=== PATIENT | male | born 1970 | race Caucasian/White ===

== ENCOUNTER 2019-03-29 11:49 | Inpatient (IN) | payer MEDICAID ==
[~2019-03-29] VITALS: Ht 182.9 cm; Wt 88.3 kg
[2019-03-29 12:56] LABS: BASOPHILS % (AUTO) 0.3 % (0-1); EOSINOPHILS # (AUTO) 0.1 X10'3 (0-0.9); EOSINOPHILS % (AUTO) 1.4 % (0-6); HEMATOCRIT 50.1 % (42.0-52.0); HEMOGLOBIN 17.6 g/dl (14.0-17.9); LYMPHOCYTES # (AUTO) 2.1 X10'3 (1.1-4.8); MEAN CORPUSCULAR HEMOGLOBIN 30.8 PG (27.0-31.0); MEAN CORPUSCULAR HGB CONC 35.1 g/dL (33.0-36.5); MEAN CORPUSCULAR VOLUME 87.7 FL (78-98); MEAN PLATELET VOLUME 7.1 FL (7.4-10.4); MONOCYTES # (AUTO) 0.7 X10'3 (0-0.9); MONOCYTES % (AUTO) 6.5 % (2-12); NEUTROPHILS # (AUTO) 7.4 X10'3 (1.8-7.7); NEUTROPHILS % (AUTO) 71.8 % (42-75); PLATELET COUNT 279 X10'3 (140-440); RED BLOOD COUNT 5.71 X10'6 (4.70-6.10); RED CELL DISTRIBUTION WIDTH 13.3 % (11.5-14.5); WHITE BLOOD COUNT 10.3 X10'3 (4.5-11.0)
[2019-03-29 13:09] LABS: PARTIAL THROMBOPLASTIN TIME 30 SECONDS (22-32)
[2019-03-29 13:20] LABS: ALANINE AMINOTRANSFERASE 41 U/L (12-78); ALBUMIN 4.3 G/DL (3.4-5.0); ALBUMIN/GLOBULIN RATIO 1.3 (1.1-1.5); ALKALINE PHOSPHATASE 60 IU/L (46-116); ANION GAP 7 (8-16); ASPARTATE AMINO TRANSFERASE 18 U/L (10-37); BILIRUBIN,TOTAL 0.8 MG/DL (0.1-1.0); BLOOD UREA NITROGEN 13 MG/DL (7-18); CALCIUM 9.6 MG/DL (8.5-10.1); CHLORIDE 107 MMOL/L (99-107); CREATININE 0.93 MG/DL (0.60-1.10); GLUCOSE 101 MG/DL (70-104); POTASSIUM 4.4 MMOL/L (3.5-5.1); SODIUM 142 MMOL/L (135-145); TOTAL CARBON DIOXIDE 27.8 MMOL/L (24-32); TOTAL PROTEIN 7.6 G/DL (6.4-8.2); eGFR 87 ML/MIN
[2019-03-29] MEDS ORDERED: iohexol 300mg/ml 100ml inj. ONE (13:37)
[2019-03-29] MEDS ORDERED: acetaminophen 325mg tablet PO ONE (14:00)
[2019-03-29] MEDS ORDERED: piperacillin/tazo 4.5gm/100ml 100 ML IV STA (14:44)
[2019-03-29] MEDS ORDERED: NO HOME MEDS (14:59)
[2019-03-29] MEDS ORDERED: potassium Cl 20 mEq SR tablet PO PRN ×2 (15:15)
[2019-03-29] MEDS ORDERED: diphenhydrAMINE 25mg capsule PO PRN (15:15)
[2019-03-29] MEDS ORDERED: magnesium Cl slow-release 64mg tablet PO PRN (15:15)
[2019-03-29] MEDS ORDERED: magnesium hydroxide 30ml (MOM) UD suspension PO PRN (15:15)
[2019-03-29] MEDS ORDERED: magnesium 4gm in 100ml NS 100 ML IV PRN (15:15)
[2019-03-29] MEDS ORDERED: acetaminophen 650mg rectal suppository RC PRN (15:15)
[2019-03-29] MEDS ORDERED: metoclopramide 5 mg/ml inj IV PRN (15:15)
[2019-03-29] MEDS ORDERED: diphenhydrAMINE 50 mg/ml inj IV PRN (15:15)
[2019-03-29] MEDS ORDERED: HYDROcodone/acetaminophen 10/325mg tab PO PRN (15:15)
[2019-03-29] MEDS ORDERED: bisacodyl 10mg suppository rectal RC PRN (15:15)
[2019-03-29] MEDS ORDERED: magnesium 2GM in 50ml NS 50 ML IV PRN (15:15)
[2019-03-29] MEDS ORDERED: ondansetron/PF 4mg/2ml inj IV PRN (15:15)
[2019-03-29] MEDS ORDERED: acetaminophen 325mg tablet PO PRN (15:15)
[2019-03-29] MEDS ORDERED: potassium CL 10mEq/100ml bag 100 ML IV PRN ×2 (15:15)
[2019-03-29] MEDS ORDERED: HYDROcodone/acetaminophen 5mg/325mg tablet PO PRN (15:15)
[2019-03-29] MEDS: normal saline 1000ml 1,000 ML IV SCH (15:34)
--- NOTE | 2019-03-29 16:10 | NUR ---
Report received from ED RN, Mindi.
[2019-03-29 16:30] VITALS: BP 129/91
[2019-03-29 16:42] LABS: H PYLORI ANTIBODY NEGATIVE (Neg)
[2019-03-29 16:56] LABS: HEMOGLOBIN A1C 5.4 % (4.5-6.2)
[2019-03-29] MEDS: pantoprazole 40mg Tablet.DR PO SCH (17:07)
[2019-03-29] MEDS: acetaminophen 325mg tablet PO PRN (17:22)
--- NOTE | 2019-03-29 18:05 | NUR ---
Problems reprioritized. Patient report given, questions answered & plan of care reviewed with WILMER Samano & WILMER Obregon.
--- NOTE | 2019-03-29 18:30 | NUR ---
Patient in room [facility]. I have received report from BLADIMIR and had the opportunity to ask questions and assume patient care. ASSUMED CARE OF PT WITH WILMER Almazan
--- NOTE | 2019-03-29 18:50 | NUR ---
Patient in room [facility]. I have received report from Kelly GUILLEN and had the opportunity to ask questions and assume patient care.
[2019-03-29 20:00] VITALS: BP 116/78
[2019-03-29] MEDS: K and/or MAG REPLACEMENT MC SCH (20:00)
[2019-03-29] MEDS: docusate sod 100mg capsule PO SCH (20:35)
[2019-03-29] MEDS ORDERED: temazepam 15mg capsule PO PRN (21:00)
[2019-03-29] MEDS: piperacillin/tazo 3.375gm/50ml 50 ML IV SCH (23:59)
[2019-03-30] VITALS: BP 113/78
[2019-03-30] MEDS: normal saline 1000ml 1,000 ML IV SCH ×3 (00:04→20:10)
[2019-03-30 05:09] LABS: BASOPHILS % (AUTO) 0.5 % (0-1); EOSINOPHILS # (AUTO) 0.3 X10'3 (0-0.9); EOSINOPHILS % (AUTO) 3.8 % (0-6); HEMATOCRIT 43.9 % (42.0-52.0); HEMOGLOBIN 15.4 g/dl (14.0-17.9); LYMPHOCYTES # (AUTO) 2.1 X10'3 (1.1-4.8); LYMPHOCYTES % (AUTO) 27.2 % (21-51); MEAN CORPUSCULAR HEMOGLOBIN 31.2 PG (27.0-31.0); MEAN PLATELET VOLUME 7.1 FL (7.4-10.4); MONOCYTES # (AUTO) 0.7 X10'3 (0-0.9); NEUTROPHILS # (AUTO) 4.6 X10'3 (1.8-7.7); NEUTROPHILS % (AUTO) 59.5 % (42-75); PLATELET COUNT 235 X10'3 (140-440); RED BLOOD COUNT 4.93 X10'6 (4.70-6.10); RED CELL DISTRIBUTION WIDTH 13.4 % (11.5-14.5); WHITE BLOOD COUNT 7.7 X10'3 (4.5-11.0)
[2019-03-30 05:14] LABS: ALANINE AMINOTRANSFERASE 34 U/L (12-78); ALBUMIN 3.4 G/DL (3.4-5.0); ALBUMIN/GLOBULIN RATIO 1.2 (1.1-1.5); ALKALINE PHOSPHATASE 50 IU/L (46-116); ANION GAP 7 (8-16); ASPARTATE AMINO TRANSFERASE 18 U/L (10-37); BLOOD UREA NITROGEN 12 MG/DL (7-18); BUN/CREATININE RATIO 12.8 (5.4-32.0); CALCIUM 8.7 MG/DL (8.5-10.1); CHLORIDE 110 MMOL/L (99-107); CREATININE 0.94 MG/DL (0.60-1.10); GLUCOSE 98 MG/DL (70-104); MAGNESIUM 2.1 MG/DL (1.5-2.4); POTASSIUM 3.9 MMOL/L (3.5-5.1); SODIUM 143 MMOL/L (135-145); TOTAL CARBON DIOXIDE 26.2 MMOL/L (24-32); TOTAL PROTEIN 6.3 G/DL (6.4-8.2); eGFR 86 ML/MIN
--- NOTE | 2019-03-30 06:20 | NUR ---
Problems reprioritized. Patient report given, questions answered & plan of care reviewed with Chel GUILLEN.
--- NOTE | 2019-03-30 06:23 | NUR ---
Patient in room [facility]. I have received report from Jazmyne/Mindi GUILLEN and had the opportunity to ask questions and assume patient care.
[2019-03-30] MEDS: pantoprazole 40mg Tablet.DR PO SCH (07:07)
[2019-03-30] MEDS: piperacillin/tazo 3.375gm/50ml 50 ML IV SCH ×2 (07:07→16:33)
[2019-03-30] MEDS: docusate sod 100mg capsule PO SCH ×2 (07:07→20:10)
[2019-03-30 07:15] VITALS: BP 114/78
[2019-03-30] MEDS: K and/or MAG REPLACEMENT MC SCH ×2 (08:00→20:00)
[2019-03-30] MEDS: acetaminophen 325mg tablet PO PRN ×3 (08:04→16:36)
[2019-03-30 11:00] VITALS: BP 132/87
--- NOTE | 2019-03-30 15:43 | NUR ---
Nutrition consult re: "diverticulitis, GERD, post-prandial hypoglycemia". Per H&P pt had a colonoscopy 4 days prior that showed diverticulosis, admitted with diverticulitis. Pt and SO seen at bedside provided with written and verbal GERD, low fiber, and high fiber educations as well as a list of fiber content in food. Pt reports hypoglycemia following PO intake stating that he gets so tired after meals that he is unable to work and needs to rest. Pt reports that because of this, he usually does not eat meals throughout the day and only eats dinner. Pt reports he has never checked his blood sugars before and is just assuming he is having hypoglycemia given extreme fatigue following meals. RD paged MD regarding recommendation of taking accuchecks after meals to observe post-prandial blood sugars. Current A1c is WNL at 5.4. No hx DM. Per H&P pt has problems with his bowel emptying and takes MiraLax at home. Appetite and weight have been good per H&P. H.pylori test negative. Pt provided with RD contact information. Will continue to follow closely. Recommendations: 1) Advance to low fiber diet as medically indicated 2) Monitor post-prandial BG levels to monitor for hypoglycemia 3) Routine bowel care 4) Wt per rx Addendum: 03/30/19 at [address] Amended: Links added.
--- NOTE | 2019-03-30 18:46 | NUR ---
Problems reprioritized. Patient report given, questions answered & plan of care reviewed with Nayla GUILLEN.
--- NOTE | 2019-03-30 19:35 | NUR ---
Patient in room [facility]. I have received report from WILMER Milligan and had the opportunity to ask questions and assume patient care. Addendum: 03/30/19 at 1936 by Nayla Johnson RN Amended: Links added.
[2019-03-30 20:00] VITALS: BP 120/72
[2019-03-30] MEDS: Melatonin 3mg tablet PO SCH (20:09)
[2019-03-30] MEDS: lactobacillus rhamnosus 10,000 MMU CELLS/CAPSULE PO SCH (20:09)
[2019-03-30] MEDS: mag hydrox/Alum hydrox/simeth 30ml oral suspension PO PRN (21:38)
--- NOTE | 2019-03-30 22:57 | NUR ---
Patient in room [facility]. I have received report from WILMER Milligan and had the opportunity to ask questions and assume patient care. Addendum: 03/30/19 at 2258 by Nayla Johnson RN Amended: Links added.
[2019-03-31] MEDS: piperacillin/tazo 3.375gm/50ml 50 ML IV SCH ×3 (00:02→16:46)
[2019-03-31 00:43] VITALS: BP 108/74
[2019-03-31] MEDS: normal saline 1000ml 1,000 ML IV SCH (04:26)
[2019-03-31] MEDS: acetaminophen 325mg tablet PO PRN ×3 (04:29→21:59)
[2019-03-31 04:56] LABS: BASOPHILS # (AUTO) 0.1 X10'3 (0-0.2); BASOPHILS % (AUTO) 0.9 % (0-1); EOSINOPHILS # (AUTO) 0.3 X10'3 (0-0.9); EOSINOPHILS % (AUTO) 4.4 % (0-6); HEMATOCRIT 41.2 % (42.0-52.0); HEMOGLOBIN 14.6 g/dl (14.0-17.9); LYMPHOCYTES # (AUTO) 2.3 X10'3 (1.1-4.8); LYMPHOCYTES % (AUTO) 36.4 % (21-51); MEAN CORPUSCULAR HEMOGLOBIN 31.2 PG (27.0-31.0); MEAN CORPUSCULAR HGB CONC 35.3 g/dL (33.0-36.5); MEAN CORPUSCULAR VOLUME 88.4 FL (78-98); MEAN PLATELET VOLUME 7.3 FL (7.4-10.4); MONOCYTES # (AUTO) 0.5 X10'3 (0-0.9); MONOCYTES % (AUTO) 8.3 % (2-12); NEUTROPHILS # (AUTO) 3.1 X10'3 (1.8-7.7); PLATELET COUNT 242 X10'3 (140-440); RED BLOOD COUNT 4.66 X10'6 (4.70-6.10); WHITE BLOOD COUNT 6.3 X10'3 (4.5-11.0)
[2019-03-31 05:13] LABS: ALANINE AMINOTRANSFERASE 27 U/L (12-78); ALBUMIN 3.5 G/DL (3.4-5.0); ALBUMIN/GLOBULIN RATIO 1.3 (1.1-1.5); ALKALINE PHOSPHATASE 45 IU/L (46-116); ANION GAP 5 (8-16); ASPARTATE AMINO TRANSFERASE 15 U/L (10-37); BILIRUBIN,TOTAL 0.9 MG/DL (0.1-1.0); BLOOD UREA NITROGEN 8 MG/DL (7-18); BUN/CREATININE RATIO 8.2 (5.4-32.0); CALCIUM 8.5 MG/DL (8.5-10.1); CHLORIDE 111 MMOL/L (99-107); CREATININE 0.97 MG/DL (0.60-1.10); GLUCOSE 94 MG/DL (70-104); MAGNESIUM 2.1 MG/DL (1.5-2.4); POTASSIUM 3.8 MMOL/L (3.5-5.1); SODIUM 144 MMOL/L (135-145); TOTAL CARBON DIOXIDE 27.7 MMOL/L (24-32); TOTAL PROTEIN 6.1 G/DL (6.4-8.2); eGFR 83 ML/MIN
--- NOTE | 2019-03-31 06:15 | NUR ---
Patient in room [facility]. I have received report from Nayla GUILLEN and had the opportunity to ask questions and assume patient care.
--- NOTE | 2019-03-31 06:24 | NUR ---
Problems reprioritized. Patient report given, questions answered & plan of care reviewed with WILMER Milligan. Addendum: 03/31/19 at 0624 by Nayla Johnson RN Amended: Links added.
[2019-03-31] MEDS: K and/or MAG REPLACEMENT MC SCH ×2 (08:00→20:00)
[2019-03-31] MEDS: lactobacillus rhamnosus 10,000 MMU CELLS/CAPSULE PO SCH ×2 (08:03→21:58)
[2019-03-31] MEDS: docusate sod 100mg capsule PO SCH ×2 (08:03→21:59)
[2019-03-31] MEDS: pantoprazole 40mg Tablet.DR PO SCH (08:03)
[2019-03-31 11:00] VITALS: BP 136/89
[2019-03-31] MEDS: mag hydrox/Alum hydrox/simeth 30ml oral suspension PO PRN (13:28)
--- NOTE | 2019-03-31 18:00 | NUR ---
Problems reprioritized. Patient report given, questions answered & plan of care reviewed with nerissa sesay RN.
[2019-03-31 20:00] VITALS: BP 139/92
[2019-03-31] MEDS ORDERED: CIPR-230 PO (20:54)
[2019-03-31] MEDS ORDERED: LACT1CAP26 PO (20:54)
[2019-03-31] MEDS ORDERED: METR-159 PO (20:54)
[2019-03-31] MEDS ORDERED: PANT40TA4 PO (20:54)
[2019-03-31] MEDS: Melatonin 3mg tablet PO SCH (21:00)
[2019-04-01] VITALS: BP 115/63
[2019-04-01] MEDS: piperacillin/tazo 3.375gm/50ml 50 ML IV SCH ×2 (00:42→07:25)
[2019-04-01 04:00] VITALS: BP 139/92
[2019-04-01 04:59] LABS: BASOPHILS # (AUTO) 0.1 X10'3 (0-0.2); BASOPHILS % (AUTO) 0.9 % (0-1); EOSINOPHILS # (AUTO) 0.3 X10'3 (0-0.9); EOSINOPHILS % (AUTO) 4.2 % (0-6); HEMATOCRIT 43.5 % (42.0-52.0); HEMOGLOBIN 15.2 g/dl (14.0-17.9); LYMPHOCYTES # (AUTO) 2.6 X10'3 (1.1-4.8); LYMPHOCYTES % (AUTO) 39.5 % (21-51); MEAN CORPUSCULAR HEMOGLOBIN 30.8 PG (27.0-31.0); MEAN CORPUSCULAR HGB CONC 34.9 g/dL (33.0-36.5); MEAN CORPUSCULAR VOLUME 88.3 FL (78-98); MEAN PLATELET VOLUME 7.2 FL (7.4-10.4); MONOCYTES # (AUTO) 0.5 X10'3 (0-0.9); MONOCYTES % (AUTO) 7.9 % (2-12); NEUTROPHILS # (AUTO) 3.1 X10'3 (1.8-7.7); NEUTROPHILS % (AUTO) 47.5 % (42-75); PLATELET COUNT 258 X10'3 (140-440); RED BLOOD COUNT 4.93 X10'6 (4.70-6.10); RED CELL DISTRIBUTION WIDTH 13.3 % (11.5-14.5); WHITE BLOOD COUNT 6.5 X10'3 (4.5-11.0)
[2019-04-01 05:07] LABS: ALANINE AMINOTRANSFERASE 26 U/L (12-78); ALBUMIN 3.8 G/DL (3.4-5.0); ALBUMIN/GLOBULIN RATIO 1.3 (1.1-1.5); ALKALINE PHOSPHATASE 54 IU/L (46-116); ANION GAP 5 (8-16); ASPARTATE AMINO TRANSFERASE 14 U/L (10-37); BILIRUBIN,TOTAL 0.6 MG/DL (0.1-1.0); BLOOD UREA NITROGEN 12 MG/DL (7-18); BUN/CREATININE RATIO 11.8 (5.4-32.0); CALCIUM 9.2 MG/DL (8.5-10.1); CHLORIDE 109 MMOL/L (99-107); CREATININE 1.02 MG/DL (0.60-1.10); GLUCOSE 101 MG/DL (70-104); MAGNESIUM 2.1 MG/DL (1.5-2.4); POTASSIUM 4.1 MMOL/L (3.5-5.1); SODIUM 144 MMOL/L (135-145); TOTAL CARBON DIOXIDE 29.8 MMOL/L (24-32); TOTAL PROTEIN 6.8 G/DL (6.4-8.2); eGFR 78 ML/MIN
--- NOTE | 2019-04-01 06:37 | NUR ---
Patient in room [facility]. I have received report from Kaylie Pickett RN and had the opportunity to ask questions and assume patient care.
[2019-04-01] MEDS: docusate sod 100mg capsule PO SCH (07:24)
[2019-04-01] MEDS: pantoprazole 40mg Tablet.DR PO SCH (07:24)
[2019-04-01] MEDS: lactobacillus rhamnosus 10,000 MMU CELLS/CAPSULE PO SCH (07:24)
[2019-04-01] MEDS: K and/or MAG REPLACEMENT MC SCH (08:00)
--- NOTE | 2019-04-01 11:00 | NUR ---
Pt DC to home. Pt A & O, in no apparent discomfort. Pt 's medicines ef[facility] to [facility] [place]. Pt and verbalized understanding of all Dc orders and instructions. Pt's packed all belongings and carried them out. pt was wheeled out to front where pt was picked up bu and taken home.
== END 2019-04-01 11:10 | disposition home or self-care (01) | DRG 244 ==
LOC: ER 11:50 → ED HOLD 15:15 → SUR 3N 16:23
PROVIDERS: ADMIT Family Medicine; ATTEND Family Medicine
PROC: BW211ZZ Computerized Tomography (CT Scan) of Abdomen and Pelvis using Low Osmolar Contrast (ICD-10-PCS; principal; 2019-03-29)
DX: K57.33 Diverticulitis of large intestine without perforation or abscess with bleeding (principal); E16.2 Hypoglycemia, unspecified; K21.9 Gastro-esophageal reflux disease without esophagitis; K52.9 Noninfective gastroenteritis and colitis, unspecified; Z87.11 Personal history of peptic ulcer disease
CPT/HCPCS: 36415; 74177; 80053; 82948; 83036; 83735; 85025; 85610; 85730; 86677; 87081; 96365; 99285; G0378; J2543; J7030; Q9967

== ENCOUNTER 2022-02-28 14:26 | Emergency (ER) | payer MEDICAID ==
[~2022-02-28] VITALS: Ht 180.3 cm; Wt 90.9 kg
[~2022-02-28 14:26] MED LIST: LACT1CAP26 PO; PANT40TA54 PO
[2022-02-28 14:58] VITALS: BP 130/93
[2022-02-28 15:12] LABS: BASOPHILS # (AUTO) 0.1 X10'3 (0-0.2); BASOPHILS % (AUTO) 0.5 % (0-1); EOSINOPHILS # (AUTO) 0.3 X10'3 (0-0.9); HEMATOCRIT 50.7 % (42.0-52.0); HEMOGLOBIN 17.4 g/dl (14.0-17.9); LYMPHOCYTES # (AUTO) 2.3 X10'3 (1.1-4.8); LYMPHOCYTES % (AUTO) 22.1 % (21-51); MEAN CORPUSCULAR HEMOGLOBIN 30.5 PG (27.0-31.0); MEAN CORPUSCULAR HGB CONC 34.3 g/dL (33.0-36.5); MEAN PLATELET VOLUME 7.1 FL (7.4-10.4); MONOCYTES % (AUTO) 10.2 % (2-12); NEUTROPHILS # (AUTO) 6.6 X10'3 (1.8-7.7); NEUTROPHILS % (AUTO) 64.2 % (42-75); PLATELET COUNT 315 X10'3 (140-440); RED BLOOD COUNT 5.69 X10'6 (4.70-6.10); RED CELL DISTRIBUTION WIDTH 13.9 % (11.5-14.5); WHITE BLOOD COUNT 10.3 X10'3 (4.5-11.0)
[2022-02-28 15:13] LABS: CLARITY,URINE CLEAR (Clear); COLOR,URINE YELLOW (Yellow); GLUCOSE, URINE NEGATIVE (Neg); KETONES,URINE NEGATIVE (Neg); LEUKOCYTE ESTERASE ,URINE NEGATIVE (Neg); NITRITES, URINE NEGATIVE (Neg); OCCULT BLOOD,URINE TRACE-INTACT (Neg); PROTEIN,URINE NEGATIVE (Neg); UROBILINOGEN,URINE 0.2 E.U/dL (0.2-1.0)
[2022-02-28] MEDS ORDERED: ketorolac trometh. 30mg/ml inj. IV ONE (15:15)
[2022-02-28] MEDS ORDERED: normal saline 1000ML IV soln IVB ONE (15:15)
[2022-02-28] MEDS ORDERED: glycopyrrolate 0.2mg/ml inj IV ONE (15:15)
[2022-02-28] MEDS ORDERED: ketorolac tromethamine 15mg/ml inj. IV ONE (15:20)
[2022-02-28 15:26] LABS: ALANINE AMINOTRANSFERASE 74 U/L (12-78); ALBUMIN 3.9 G/DL (3.4-5.0); ALBUMIN/GLOBULIN RATIO 1.1 (1.1-1.5); ALKALINE PHOSPHATASE 47 IU/L (46-116); ANION GAP 7 (8-16); BLOOD UREA NITROGEN 11 MG/DL (7-18); BUN/CREATININE RATIO 11.1 (5.4-32.0); CALCIUM 9.4 MG/DL (8.5-10.1); CHLORIDE 102 MMOL/L (99-107); CREATININE 0.99 MG/DL (0.60-1.10); GLUCOSE 93 MG/DL (70-104); LIPASE < 50 U/L (73-393); SODIUM 135 MMOL/L (135-145); TOTAL PROTEIN 7.6 G/DL (6.4-8.2); eGFR 80 ML/MIN
[2022-02-28 15:29] LABS: UA COLLECTION TYPE NON-SPECIFIED
[2022-02-28] MEDS ORDERED: piperacillin/tazo 3.375gm/50ml 50 ML IV ONE (15:30)
[2022-02-28 15:49] LABS: RBC,URINE 0-2 /HPF (0-2); WBC,URINE 0-4 /HPF (0-4)
[2022-02-28 15:50] LABS: BACTERIA,URINE FEW /HPF (Neg); MUCUS STRANDS MANY /LPF (Neg); SQUAMOUS EPITHELIAL CELL,UR FEW /LPF (FEW)
[2022-02-28 15:50] LABS: ASPARTATE AMINO TRANSFERASE 41 U/L (10-37); POTASSIUM 4.3 MMOL/L (3.5-5.1)
[2022-02-28 16:06] LABS: D-DIMER 1.78 MG/L FEU (0-0.50)
[2022-02-28] MEDS ORDERED: iohexol 350MG/ML 100ml bottle IV ONE (17:24)
[2022-02-28] MEDS ORDERED: AMOX-580 PO (18:03)
[2022-02-28] MEDS ORDERED: HYDR-3973 PO (18:03)
[2022-02-28] MEDS ORDERED: ONDA4TAB12 PO (18:03)
== END 2022-02-28 18:47 | disposition home or self-care (01) ==
LOC: ER 14:27
DX: K57.92 Diverticulitis of intestine, part unspecified, without perforation or abscess without bleeding (principal); Z20.822 Contact with and (suspected) exposure to COVID-19; R11.0 Nausea; R10.84 Generalized abdominal pain; K62.5 Hemorrhage of anus and rectum; R42 Dizziness and giddiness; F17.200 Nicotine dependence, unspecified, uncomplicated; Z79.2 Long term (current) use of antibiotics; Z79.899 Other long term (current) drug therapy
CPT/HCPCS: 36415; 71045; 71275; 74177; 80053; 81001; 83605; 83690; 84145; 85025; 85379; 87635; 93005; 96365; 96375; 99285; C9803; J1885; J2543; J3490; J7030; Q9967